=== PATIENT | male | born 1935 | race Caucasian/White ===

== ENCOUNTER 2017-02-27 14:00 | Emergency (ER) | payer OTHER, BC ==
[2017-02-27 14:16] VITALS: TEMP 97.9; O2SAT 95
--- NOTE | 2017-02-27 15:33 | EDPHY ---
HPI/HX/ROS/PE/MDM Narrative: CHIEF COMPLAINT: Right ear surgical wound evaluation HISTORY OF PRESENT ILLNESS: This patient is an 81-year-old male status two weeks post-Mohs procedure to his right ear who presents to the Emergency Department complaining of swelling and pain to the site of the surgical wound beginning on , four days prior to arrival. He reports that there were no complications and denies pain, discoloration, or swelling immediately following the procedure. He was not placed on an antibiotic. Sutures were removed five days prior to arrival. On , one day following suture removal, he noticed increased swelling, discoloration, and throbbing pain to the site of the wound. He has no additional complaints. No fever, chills, chest pain, shortness of breath, palpitations, vomiting, diarrhea, urinary complaints , headache, or lightheadedness. REVIEW OF SYSTEMS: Aside from elements discussed in the HPI, a comprehensive 10-point review of systems was reviewed and is negative. PAST MEDICAL HISTORY: 1. Hypercholesteremia 2. Hyperlipidemia 3. 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 Hearing impaired bilaterally with hearing aids. SOCIAL HISTORY: Visiting from [place]. PHYSICAL EXAM: GENERAL: Well-developed, well-nourished, non-toxic, resting comfortably in no distress. EENT: Normal TMs bilaterally. No facial swelling. FOCUSED EXAM OF THE RIGHT EAR: [place] of the ear is swollen and erythematous. There is a 1cm weeping open site where Mohs procedure was completed; does not appear healed. ED Course: This 81-year-old male presents with complaints of increased swelling, discoloration, and throbbing pain to the pinna of his right ear two weeks post Mohs procedure performed by his asp net developer in [place]. He has no additional complaints; no fever, chills, or other complaints suggestive of systemic infection. At time of presentation, he is non-toxic appearing and resting comfortably. Normal vitals. Focused exam of his right ear demonstrates a 1cm gaping wound that does not appear to be healing appropriately; his pinna is swollen and erythematous surrounding the wound. Will proceed to place a new dressing over the wound and treat suspected cellulitis and chondritis with course of Ciprofloxacin. The patient is returning home to [place] tomorrow and agrees to follow-up as soon as possible for reevaluation by his asp net developer who performed the procedure. He is given customary care and return precautions and will be discharged home in good condition. General Time Seen by Provider: 02/27/17 15:29 Initial Vital Signs: Initial Vital Signs Temperature (C) 36.6 C 02/27/17 14:05 Heart Rate 71 02/27/17 14:05 Respiratory Rate 18 02/27/17 14:05 Blood Pressure 165/90 H 02/27/17 14:05 O2 Sat (%) 95 02/27/17 14:05 O2 Delivery Mode Room Air Allergies/Adverse Reactions: No Known Allergies Allergy (Verified 02/27/17 14:11) Home Medications: Medication Instructions Recorded Ibuprofen [Motrin (*)] 800 mg PO Q6-8PRN #30 tab 05/31/15 Lisinopril 05/31/15 Lovastatin 05/31/15 Ciprofloxacin HCl [Ciprofloxacin] 500 mg PO BID #14 tab 02/27/17 Hydrocodone/APAP 5/325 [[place] 1 tab PO Q6H PRN #10 tab 02/27/17 5/325 (RX)] Departure - Departure Disposition: Home, Routine, Self-Care Clinical Impression: Chondritis of right external ear, Cellulitis of right external ear Condition: Good Instructions: Cellulitis (ED) Additional Instructions: 1. Use 600mg Ibuprofen every 6 hours with food as needed for pain and swelling. 2. Use 1 tab [place] every 4-6 hours as needed for severe pain. 3. Take the full course of antibiotics as prescribed. 4. Keep your wound clean and dry. Leave the dressing on until your follow-up appointment. You may shower, but try to prevent your dressing from getting wet. 5. Follow-up with your doctor as soon as you return home. Should you remain in [place] for longer than expected, we have referred you to an ENT Specialist in the area, Dr. Sanchez. 6. Return to the Emergency Department with fever or chills, increased pain or swelling, lightheadedness or weakness, or for other serious concerns. Referrals: KODI ADORNO MD [Other] - As per Instructions Tuan Sanchez MD [Medical Doctor] - As per Instructions Prescriptions: Ciprofloxacin HCl [Ciprofloxacin] 500 mg PO BID #14 tab Hydrocodone/APAP 5/325 [[place] 5/325 (RX)] 1 tab PO Q6H PRN #10 tab PRN Reason: Pain Report Scribed for: Ora Chapman Report Scribed by: Danielle Elena Date of Report: 02/27/17 Time of Report: 15:33 Physician Review and Approval Statement: Portions of this note were transcribed by a medical records tech. I personally performed a history, physical exam, medical decision making, and confirmed accuracy of information the transcribed note.
[2017-02-27 15:53] VITALS: BP 158/87; PULSE 68; RESP 16
== END 2017-02-27 15:58 | disposition home or self-care (01) ==
DX: H60.11 Cellulitis of right external ear (principal); H61.031 Chondritis of right external ear; Z85.828 Personal history of other malignant neoplasm of skin; Y82.8 Other medical devices associated with adverse incidents